=== PATIENT | female | born 1930 | race African-American/Black ===

== ENCOUNTER 2016-10-03 21:45 | Emergency (ER) | payer MEDICARE, MEDICAID ==
[~2016-10-03] VITALS: Ht 167.6 cm; Wt 55.0 kg
[2016-10-03] MEDS ORDERED: KETOROLAC 30MG/ML VIAL IV STA (23:39)
[2016-10-03] MEDS ORDERED: SODIUM CHLORIDE 0.9% 1,000 ML IV ONE (23:39)
[2016-10-04 00:11] LABS: BASOPHILS % 0.5 % (0.0-2.0); EOSINOPHILS % 1.1 % (0.0-5.0); HEMATOCRIT. 34.6 % (36.0-48.0); HEMOGLOBIN. 11.2 g/dL (12.0-16.0); LYMPHOCYTES % 24.5 % (20.0-50.0); MEAN CORPUSCULAR HEMOGLOBIN 27.9 pg (28.0-32.0); MEAN CORPUSCULAR VOLUME 86.5 fL (81.0-99.0); MONOCYTES % 8.1 % (2.0-8.0); NEUTROPHILS % 65.8 % (40.0-76.0); PLATELET 167 x1000/uL (130-400); RED CELL DISTRIBUTION WIDTH 13.9 % (11.6-14.6)
[2016-10-04 09:30] VITALS: BP 161/84
== END 2016-10-04 10:30 | disposition home or self-care (01) ==
LOC: ER 22:07
DX: M25.561 Pain in right knee (principal); M25.461 Effusion, right knee; E05.90 Thyrotoxicosis, unspecified without thyrotoxic crisis or storm; I10 Essential (primary) hypertension; M19.90 Unspecified osteoarthritis, unspecified site
CPT/HCPCS: 36415; 73562; 80048; 85025; 96361; 96374; 99285; J1885; J7030

== ENCOUNTER 2016-10-08 12:38 | Observation (INO) | payer MEDICARE, MEDICAID ==
[~2016-10-08] VITALS: Ht 162.6 cm; Wt 65.3 kg
[2016-10-08] MEDS ORDERED: SODIUM CHLORIDE 0.9% 1,000 ML IV ONE (13:21)
[2016-10-08 14:19] LABS: BASOPHILS % 0.6 % (0.0-2.0); EOSINOPHILS % 1.5 % (0.0-5.0); HEMATOCRIT. 35.4 % (36.0-48.0); LYMPHOCYTES % 17.1 % (20.0-50.0); MEAN CORPUSCULAR HEMOGLOBIN 29.1 pg (28.0-32.0); MEAN CORPUSCULAR VOLUME 85.6 fL (81.0-99.0); MEAN PLATELET VOLUME 7.9 fl (7.4-10.4); MONOCYTES % 9.6 % (2.0-8.0); NEUTROPHILS % 71.2 % (40.0-76.0); PLATELET 186 x1000/uL (130-400); RED BLOOD CELL COUNT 4.14 mill/uL (4.2-5.4); RED CELL DISTRIBUTION WIDTH 13.9 % (11.6-14.6)
[2016-10-08 14:23] LABS: INR 1.1; PROTHROMBIN TIME 11.3 sec
[2016-10-08 14:29] LABS: AMMONIA 10 uMol/L (<32)
[2016-10-08 14:30] LABS: CLARITY URINE CLEAR (CLEAR); COLOR URINE YELLOW (YELLOW); GLUCOSE URINE NEGATIVE (NEGATIVE); KETONES URINE NEGATIVE (NEGATIVE); LEUKOCYTE ESTERASE URINE NEGATIVE (NEGATIVE); NITRITE URINE NEGATIVE (NEGATIVE); OCCULT BLOOD URINE NEGATIVE (NEGATIVE); PROTEIN URINE 2+ (NEGATIVE); UROBILINOGEN URINE 0.2 E.U./dL (0.2-1.0)
[2016-10-08 14:34] LABS: CARBON DIOXIDE 25 mEq/L (21-32); CHLORIDE 99 mEq/L (98-107); ETHANOL BLOOD < 10 mg/dL; TROPONIN I 0.09 ng/mL (0.00-0.04)
[2016-10-08 15:02] LABS: *AMPHETAMINES SCREEN URINE NEGATIVE (NEGATIVE); *BARBITURATES SCREEN URINE NEGATIVE (NEGATIVE); *BENZODIAZEPINES SCREEN URINE NEGATIVE (NEGATIVE); *COCAINE SCREEN URINE NEGATIVE (NEGATIVE); CANNABINOID URINE SCREEN NEGATIVE (NEGATIVE); METHADONE URINE SCREEN NEGATIVE (NEGATIVE); OPIATES URINE SCREEN PRESUMTIVE POSITIVE (NEGATIVE); PHENCYCLIDINE URINE SCREEN NEGATIVE (NEGATIVE)
[2016-10-08] MEDS ORDERED: CLONIDINE 0.1MG TABLET PO NR (21:00)
[2016-10-08 21:15] VITALS: BP 168/89
[2016-10-08 21:30] VITALS: BP 168/89
[2016-10-08] MEDS ORDERED: TEMAZEPAM 15MG CAPSULE PO PRN (23:30)
[2016-10-08] MEDS ORDERED: CLONIDINE 0.1MG TABLET PO PRN (23:30)
[2016-10-08] MEDS: DEXT 5%/0.45% NACL 1000ML 1,000 ML IV SCH (23:45)
[2016-10-09] VITALS: BP 133/52
[2016-10-09] MEDS ORDERED: PRAV20TA57 PO (01:39)
[2016-10-09] MEDS ORDERED: MELO-58 PO (01:39)
[2016-10-09] MEDS ORDERED: DONE5TAB33 PO (01:39)
[2016-10-09] MEDS ORDERED: ASPI-1159 PO (01:39)
[2016-10-09] MEDS ORDERED: ACET1TAB12 PO (01:39)
[2016-10-09] MEDS ORDERED: VALS320T2 PO (01:39)
[2016-10-09] MEDS ORDERED: methimazole PO (01:39)
[2016-10-09 04:00] VITALS: BP 128/67
[2016-10-09] MEDS: OMEPRAZOLE 20MG CAPSULE EXTENDED RELEASE PO SCH (06:23)
[2016-10-09 08:00] VITALS: BP 138/88
[2016-10-09 09:04] LABS: BASOPHILS % 0.7 % (0.0-2.0); EOSINOPHILS % 3.8 % (0.0-5.0); HEMATOCRIT. 31.2 % (36.0-48.0); HEMOGLOBIN. 10.2 g/dL (12.0-16.0); LYMPHOCYTES % 23.4 % (20.0-50.0); MEAN CORPUSCULAR HEMOGLOBIN 27.7 pg (28.0-32.0); MEAN PLATELET VOLUME 7.8 fl (7.4-10.4); MONOCYTES % 9.5 % (2.0-8.0); NEUTROPHILS % 62.6 % (40.0-76.0); PLATELET 169 x1000/uL (130-400); RED BLOOD CELL COUNT 3.67 mill/uL (4.2-5.4); RED CELL DISTRIBUTION WIDTH 13.7 % (11.6-14.6)
[2016-10-09] MEDS: ENOXAPARIN 30MG/0.3ML SYR SUBCUT SCH (09:12)
[2016-10-09] MEDS: AMLODIPINE 5MG TABLET PO SCH (09:12)
[2016-10-09 09:23] LABS: CARBON DIOXIDE 27 mEq/L (21-32); CHLORIDE 103 mEq/L (98-107)
[2016-10-09 12:00] VITALS: BP 153/66
[2016-10-09] MEDS: DEXT 5%/0.45% NACL 1000ML 1,000 ML IV SCH (13:48)
[2016-10-09 16:53] VITALS: BP 156/88
[2016-10-09 20:00] VITALS: BP 169/97
[2016-10-10] VITALS: BP 144/90
[2016-10-10 04:00] VITALS: BP 140/91
[2016-10-10] MEDS: OMEPRAZOLE 20MG CAPSULE EXTENDED RELEASE PO SCH (06:31)
[2016-10-10 08:00] VITALS: BP 150/85
[2016-10-10] MEDS: ENOXAPARIN 30MG/0.3ML SYR SUBCUT SCH (08:58)
[2016-10-10] MEDS: AMLODIPINE 5MG TABLET PO SCH (08:58)
[2016-10-10 12:00] VITALS: BP 139/81
[2016-10-10 15:22] VITALS: BP 139/81
[2016-10-10 16:00] VITALS: BP 160/87
== END 2016-10-10 16:08 ==
LOC: ER 12:39 → EDBEDREQ 15:24 → EDBEDREQTM 15:24 → INTOOBSV 15:26 → 5WST 15:26 → ENRESERV 19:33
PROVIDERS: ADMIT Internal Medicine; ATTEND Internal Medicine
DX: G93.40 Encephalopathy, unspecified (principal); F03.90 Unspecified dementia, unspecified severity, without behavioral disturbance, psychotic disturbance, mood disturbance, and anxiety; E04.9 Nontoxic goiter, unspecified; M19.90 Unspecified osteoarthritis, unspecified site; I10 Essential (primary) hypertension; G89.29 Other chronic pain
CPT/HCPCS: 36415; 70450; 71010; 80053; 80305; 81001; 82140; 82962; 83605; 84439; 84443; 84484; 85025; 85610; 93005; 96360; 96361; 96372; 99285; C1893; G0378; G0482; J1650; J3490; J7030; A4315